=== PATIENT | male | born 1975 | race African-American/Black ===

== ENCOUNTER 2018-03-08 18:03 | Emergency (ER) | payer SELFPAY ==
[~2018-03-08] VITALS: Ht 180.3 cm; Wt 97.7 kg
[~2018-03-08 18:03] MED LIST: LORTAB 7.5/5001 TAB PO; NO HOME MEDICATIONS; PENICILLIN V500 MG PO
[2018-03-08 18:07] VITALS: BP 153/90; TEMP 99.3
[2018-03-08 18:35] LABS: BASO % 0.2 % (0.0-2.0); EOS # 0.1 (0.0-0.7); EOS % 0.8 % (0-4.0); GRAN # 5.5 (1.4-6.5); GRAN % 65.6 % (42.2-75.2); HEMOGLOBIN 12.3 g/dl (13.5-18.0); LYMPH % 24.1 % (20.0-51.0); MEAN CELL VOLUME 95 fl (80.0-100.0); MEAN CORPUSCULAR HEMOGLOBIN 33 pg (27.0-31.0); MEAN CORPUSCULAR HGB CONC 34 g/dl (33.0-37.0); MEAN PLATELET VOLUME 9.8 fl (7.4-10.4); MONO # 0.8 (0.1-0.6); MONO % 9.1 % (1.7-9.3); PLATELET COUNT 204 K/mm3 (130-400); RED BLOOD COUNT 3.79 M/mm3 (4.20-5.60); REDCELL DISTRIBUTION WIDTH-CV 12.6 % (11.5-14.5)
[2018-03-08 18:36] LABS: HEMATOCRIT 36.1 % (42.0-52.0)
[2018-03-08 18:45] LABS: ALBUMIN 4.4 gm/dL (3.5-5.0); BILIRUBIN,TOTAL 1.1 mg/dL (0.0-1.0); CALCIUM 9.4 mg/dL (8.4-10.2); CREATININE, serum 1.02 mg/dL (0.66-1.25); POTASSIUM 3.9 mmol/L (3.4-5.0); TOTAL PROTEIN 8.1 gm/dL (6.4-8.2)
[2018-03-08] MEDS ORDERED: CLEOCIN HCL300 MG PO (18:52)
[2018-03-08] MEDS ORDERED: NORCO 325 MG-51 TAB PO (18:52)
[2018-03-08 19:11] VITALS: PULSE 79
== END 2018-03-08 19:22 | disposition home or self-care (01) ==
LOC: COL.ER 18:03
PROVIDERS: Physician Assistant
DX: J36 Peritonsillar abscess (principal)
CPT/HCPCS: J1100

== ENCOUNTER 2020-03-13 15:15 | Outpatient (RCR) | payer BC ==
[~2020-03-13 15:15] MED LIST changes: +CLEOCIN HCL300 MG PO; +NORCO 325 MG-51 TAB PO
== END 2020-05-21 ==
LOC: WSC
DX: M21.70 Unequal limb length (acquired), unspecified site (principal); M25.552 Pain in left hip; R26.9 Unspecified abnormalities of gait and mobility

== ENCOUNTER 2020-11-09 22:33 | Emergency (ER) | payer BC ==
[~2020-11-09] VITALS: Ht 177.8 cm; Wt 106.8 kg
[2020-11-09 23:17] LABS: STREP SCREEN NEGATIVE
[2020-11-10] MEDS ORDERED: CLEOCIN HCL300 MG PO (00:01)
[2020-11-10 00:20] VITALS: BP 123/81; PULSE 89; TEMP 97.6
== END 2020-11-10 00:20 | disposition home or self-care (01) ==
LOC: COL.ER 22:33
PROVIDERS: Nurse Practitioner
DX: J03.90 Acute tonsillitis, unspecified (principal)
CPT/HCPCS: J8540

== ENCOUNTER → 2023-03-23 | Outpatient (CLI) | payer BC | LOC: COL.RAD 07:24 | DX: M16.0 Bilateral primary osteoarthritis of hip (principal) | CPT/HCPCS: J0665; J3301; Q9967 ==